=== PATIENT | male | born 1965 | race Caucasian/White ===

== ENCOUNTER 2019-04-19 17:47 | Emergency (ER) | payer MEDICAID, OTHER ==
[~2019-04-19] VITALS: Ht 182.9 cm; Wt 127.0 kg
[2019-04-19 18:10] VITALS: BP_SYST 138
[2019-04-19] MEDS ORDERED: KETOROLAC TROMETHAMINE 30 MG VIAL IVP ONE (19:00)
[2019-04-19] MEDS ORDERED: PANTOPRAZOLE SODIUM 40 MG/VIAL (PROTONIX) IVP ONE (19:00)
[2019-04-19] MEDS ORDERED: NACL 0.9% 1,000 ML IV ONE (19:00)
[2019-04-19 19:13] LABS: BILIRUBIN,URINE NEGATIVE (NEGATIVE); BLOOD, URINE 1+ (NEGATIVE); CLARITY/URINE CLEAR (CLEAR); COLOR,URINE YELLOW (YELLOW); GLUCOSE,URINE NEGATIVE (NEGATIVE); KETONES,URINE NEGATIVE (NEGATIVE); LEUKOCYTE ESTERASE ,URINE NEGATIVE (NEGATIVE); NITRITE, URINE NEGATIVE (NEGATIVE); PH,URINE 6.5 (5.0-8.0); PROTEIN URINE TRACE (NEGATIVE); UROBILINOGEN,URINE 0.2 (0.2-1.0)
[2019-04-19 19:26] LABS: BACTERIA,URINE FEW /HPF (None Seen); MUCUS,URINE None Seen /LPF (None Seen); WBC,URINE 0-3 /HPF (0-3)
[2019-04-19 19:41] VITALS: BP_SYST 138
== END 2019-04-19 19:41 | disposition home or self-care (01) ==
LOC: SED 17:47
DX: K59.00 Constipation, unspecified (principal); E11.9 Type 2 diabetes mellitus without complications
CPT/HCPCS: 71045; 74176; 81000; 87086; 93005; 96374; 96375; 99284; C9113; J1885